=== PATIENT | female | born 1935 | race Caucasian/White ===

== ENCOUNTER 2023-08-11 08:24 | Outpatient (CLI) | payer MEDICARE ==
[2023-08-11] MEDS ORDERED: GASTROGRAFIN 30 ML BOT ONE (14:21)
[2023-08-11] MEDS ORDERED: Iopamidol 370 76% 100 ML VIAL ONE (14:21)
== END 2023-08-11 08:25 | disposition home or self-care (01) ==
LOC: CT 08:24
PROVIDERS: ATTEND Registered Nurse
DX: Z85.048 Personal history of other malignant neoplasm of rectum, rectosigmoid junction, and anus (principal); K76.89 Other specified diseases of liver; N28.1 Cyst of kidney, acquired
CPT/HCPCS: 74178; 82565; Q9963; Q9967